=== PATIENT | female | born 1950 | race Caucasian/White ===

== ENCOUNTER 2021-08-11 05:59 | Inpatient (IN) | payer OTHER ==
[~2021-08-11] VITALS: Ht 165.1 cm; Wt 78.9 kg
[~2021-08-11 05:59] MED LIST: ASPI81CH PO; ATOR40TA PO; COLLAGEN BIOTIN PO; CYCL10 PO; EZET10 PO; HYDACE5 PO; Indapamide2.5 MG PO; POTA8 PO; SUPER B COMPLEX PO; ZEGERID 20 MG1 EAC1 PO; ZOCOR; ZOLP10 PO
[2021-08-11] MEDS ORDERED: NAPR220 PO (06:33)
--- NOTE | 2021-08-11 06:59 | NUR ---
History, Chart, Medications and Allergies reviewed before start of procedure. Patient confirms NPO status and agrees with scheduled surgery. Lungs clear T/O to Auscultation.
--- NOTE | 2021-08-11 07:29 | NUR ---
TIME OUT FOR NERVE BLOCK PLACED BY DR WHATLEY.
--- NOTE | 2021-08-11 07:43 | NUR ---
0733- START OF NERVE BLOCK 0736- END TIME OF NERVE BLOCK.
--- NOTE | 2021-08-11 18:36 | NUR ---
SHIFT SUMMARY SINCE ARRIVING TO UNTIL AROUND 1230, DIET WAS ADVANCED w/ OUT DIFF. UP TO CHAIR & VOIDING EASILY. DUE TO BLOCK, STILL UNABLE TO WIGGLE FINGERS OR FEEL ARM.
[2021-08-12 04:20] LABS: BASOPHILS ABSOLUTE AUTO 0.02 K/mm3 (0.00-0.23); BASOPHILS PERCENT AUTO 0 % (0-2); EOSINOPHILS PERCENT AUTO 0 % (0-6); Hematocrit 35.4 % (33.0-51.0); Hemoglobin 11.7 g/dL (11.5-16.0); IMMATURE GRAN ABSOLUTE AUTO 0.05 K/mm3 (0.00-0.10); IMMATURE GRAN PERCENT AUTO 0 % (0-1); LYMPHOCYTES ABSOLUTE AUTO 1.78 K/mm3 (0.84-5.20); LYMPHOCYTES PERCENT AUTO 13 % (21-46); MONOCYTES ABSOLUTE AUTO 1.41 K/mm3 (0.16-1.47); MONOCYTES PERCENT AUTO 10 % (4-13); Mean Corpuscular HGB Conc 33.1 g/dL (31.5-36.5); Mean Corpuscular Volume 94 fL (80-100); Mean Platelet Volume 10.7 fL (9.1-12.4); NEUTROPHILS PERCENT AUTO 76 % (41-73); Platelet Count 236 K/mm3 (150-400); RDW Standard Deviation 44.5 fL (35.1-46.3); Red Blood Cell Count 3.77 M/mm3 (3.80-5.20); White Blood Cell Count 13.66 K/mm3 (4.00-11.30)
--- NOTE | 2021-08-12 04:54 | NUR ---
SHIFT SUMMARY A/O X4. VSS. POD1 R TOTAL SHOULDER, AQUACEL C/D/I, IMMOBILIZER IN PLACE. PT ABLE TO WIGGLE FINGERS. REPORTS NO PAIN AT THIS TIME. TREATED FOR NAUSEA X1. TOLERATING PO INTAKE. VOIDING WELL. STAND BY ASSIST. WILL CONTINUE TO MONITOR AND REPORT TO ONCOMING RN.
[2021-08-12 05:25] LABS: Bun/Creatinine Ratio 15.1 (12.0-20.0); Calcium, Blood 9.3 mg/dL (8.5-10.1); Creatinine, Blood 0.99 mg/dL (0.40-1.00); Potassium, Blood 4.2 mmol/L (3.5-5.5)
[2021-08-12] MEDS ORDERED: ACET500 PO (09:40)
[2021-08-12] MEDS ORDERED: TRAM50 PO (09:40)
[2021-08-12] MEDS ORDERED: ONDA4ODT MM (11:56)
--- NOTE | 2021-08-12 13:00 | NUR ---
DISCHARGE PT HAS CLEARED THERAPIES. PAIN WELL CONTROLLED. EATING, DRINKING, & VOIDING WELL. DRSHEAVEN & POLAR PACK SENT w/ PT. ZOFRAN & TRAMADOL SENT TO [facility]. ESCORTED OUT VIA W/C.
--- NOTE | 2021-08-12 15:34 | NUR ---
08/12/21 1534 Nancy Webster VERIFICATIONS: EDIT CHART.
== END 2021-08-12 13:14 | disposition home or self-care (01) | DRG 483 ==
LOC: SURS 05:59 → PRE IP 07:30 → SURS 12:18
PROVIDERS: ADMIT Orthopaedic Surgery
PROC: 0LS30ZZ Reposition Right Upper Arm Tendon, Open Approach (ICD-10-PCS; 2021-08-11)
PROC: 0RRJ0JZ Replacement of Right Shoulder Joint with Synthetic Substitute, Open Approach (ICD-10-PCS; principal; 2021-08-11 07:30)
DX: M19.011 Primary osteoarthritis, right shoulder (principal); K21.9 Gastro-esophageal reflux disease without esophagitis; E78.5 Hyperlipidemia, unspecified; Z88.5 Allergy status to narcotic agent; Z79.899 Other long term (current) drug therapy
CPT/HCPCS: 36415; 73030; 80048; 83735; 85025; 97110; 97116; 97162; 97166; 97530; 97535; A9270; C1776; J0171; J0690; J0735; J1100; J1885; J2250; J2405; J2704; J2795; J3010; J7120

== ENCOUNTER → 2022-04-27 | Outpatient (CLI) | payer OTHER ==
[~2022-04-27] MED LIST changes: +ACET500 PO; +NAPR220 PO; +ONDA4ODT MM; +TRAM50 PO
[2022-04-28 10:34] LABS: Candida species (DNA Probe) Negative (NEGATIVE); G. vaginalis (DNA Probe) Negative (NEGATIVE); T. vaginalis (DNA Probe) Negative (NEGATIVE)
== END ==
LOC: LAB 13:45 → LAB SHORT 13:45
PROVIDERS: Family Medicine
DX: N89.8 Other specified noninflammatory disorders of vagina (principal)
CPT/HCPCS: 87480; 87510; 87660

== ENCOUNTER → 2023-05-17 | Outpatient (CLI) | payer OTHER | LOC: LAB SHORT 13:36 → PLD 13:36 | DX: D22.4 Melanocytic nevi of scalp and neck (principal); L81.4 Other melanin hyperpigmentation | CPT/HCPCS: 88305 ==